=== PATIENT | female | born 1970 | race Caucasian/White ===

== ENCOUNTER → 2022-04-01 13:05 | Outpatient (CLI) | payer OTHER, SELFPAY ==
--- NOTE | ~2022-04-01 | MR_ITS ---
MRI of the left knee Clinical history: Pain Technique: Coronal proton density and proton density-weighted images, sagittal proton-density and T2 fat-sat images, and axial proton-density fat-saturated images were acquired. Findings: ACL is poorly defined. There is either chronic complete tear versus severe mucoid degenerat elba change and poor definition of the ligament. Posterior cruciate ligament is intact. Medial collate ral ligament and lateral collateral ligament complex are intact. Popliteus tendon is intact. There is complex tearing of the posterior horn and body lateral meniscus, which are markedly diminuti ve and somewhat macerated in appearance. No definite medial meniscal tear. There is probable intrasub stance degenerative signal in the medial meniscus. There is high-grade chondromalacia at the lateral joint line and more extensively along the lateral t ibial plateau. There is extensive mild chondral thinning of the medial femoral condyle. There is high -grade chondromalacia along the lateral patellofemoral facet. Tricompartmental osteophytes are presen t. No significant bone marrow signal abnormality identified. Extensor mechanism is intact. No significant joint effusion. Moderate Will's cyst present. 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 Correlate for ACL laxity. Complex tearing of the posterior horn and body lateral meniscus, as detailed above. Moderate tricompartmental degenerative change, most severe at the patellofemoral articulation and at the lateral joint line. Moderate Will's cyst. Reviewed, dictated and finalized at [facility]. 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 Correlate for ACL laxity. Complex tearing of the posterior horn and body lateral meniscus, as detailed ab ove. Moderate tricompartmental degenerative change, most severe at the patellofemora l articulation and at the lateral joint line. Moderate Will's cyst.
== END ==
PROVIDERS: Visit Provider Physician Assistant
DX: M71.22 Synovial cyst of popliteal space [Baker], left knee (principal); M17.12 Unilateral primary osteoarthritis, left knee; S83.272A Complex tear of lateral meniscus, current injury, left knee, initial encounter; X58.XXXA Exposure to other specified factors, initial encounter
CPT/HCPCS: 73721